=== PATIENT | male | born 1940 | race Caucasian/White ===

== ENCOUNTER 2017-09-03 08:44 | Emergency (ER) | payer MEDICARE, OTHER ==
[~2017-09-03] VITALS: Ht 185.4 cm; Wt 100.0 kg
[2017-09-03 08:45] VITALS: BP 150/82; PULSE 81; RESP 14; TEMP 98; O2SAT 96
--- NOTE | 2017-09-03 09:25 | RADRPT ---
EXAM DATE/TIME: 09/03/2017 09:03 [place] COMPARISON: No previous studies available for comparison. INDICATIONS : Rolled right ankle when stepping off a curb yesterday morning, pain along lateral side MEDICAL HISTORY : None. SURGICAL HISTORY : None. ENCOUNTER: Initial ACUITY: 2 days PAIN SCORE: 10/10 LOCATION: Right ankle FINDINGS: Subtle nondisplaced fracture of the lateral malleolus. Talar dome is intact. Remaining osseous struct ures are intact. Joint spaces are maintained. Soft tissues are unremarkable. CONCLUSION: 1. Subtle nondisplaced lateral malleolar fracture. Stan Mckenzie MD on September 03, 2017 at 9:22 Board Certified Radiologist. This report was verified electronically.
--- NOTE | 2017-09-03 09:49 | PD ---
HPI Chief Complaint: Injury Time Seen by Provider: 08:59 Travel History International Travel<30 days: No Contact w/Intl Traveler<30days: No Traveled to known affect area: No History of Present Illness HPI 77-year-old male presents to emergency department status post stepping off a curb last evening injuring his right lateral ankle. She is going into a restaurant where he stepped off a small curb twisting his right ankle. He is concerned that it may be fractured. He has pain with ambulation, but no significant swelling or ecchymosis. He did not fall completely down. He had no loss of consciousness or syncope. Pain in the ankles about a 7 out of 10. He's been taking Advil with good results. Denies any other injury. He is down visiting from [place] for the [place]. He has no known drug allergies. [facility] Social History Alcohol Use: Yes (4 drinks a day ) Tobacco Use: No Substance Use: No Allergies-Medications (Allergen,Severity, Reaction): Coded Allergies: No Known Allergies (Unverified , 09/03/17) Review of Systems Except as stated in HPI: all other systems reviewed are Neg General / Constitutional: No: Fever Eyes: No: Visual changes HENT: No: Headaches Cardiovascular: No: Chest Pain or Discomfort Respiratory: No: Shortness of Breath Gastrointestinal: No: Abdominal Pain Genitourinary: No: Dysuria Musculoskeletal: Positive: Arthralgias, Limited ROM, Pain Skin: No Rash Neurologic: No: Weakness Psychiatric: No: Depression Endocrine: No: Polydipsia Hematologic/Lymphatic: No: Easy Bruising Physical Exam Narrative GENERAL: Patient appears in mild distress. SKIN: Warm and dry. Normal color. Normal turgor. No signs of abrasion, contusion, or ecchymosis. HEAD: Atraumatic. Normocephalic. EYES: Pupils equal and round. No scleral icterus. No injection or drainage. ENT: No nasal bleeding or discharge. Mucous membranes pink and moist. Pharynx is clear. Airway is patent NECK: Trachea midline. Supple nontender. CARDIOVASCULAR: Regular rate and rhythm. RESPIRATORY: No accessory muscle use. Clear to auscultation. Breath sounds equal bilaterally. GASTROINTESTINAL: Abdomen soft, non-tender, nondistended. Hepatic and splenic margins not palpable. MUSCULOSKELETAL: Extremities without clubbing, cyanosis, or edema. No obvious deformities. Patient has tenderness with palpation to the tip of the right lateral malleolus of the right ankle. He has no decreased range of motion other than from discomfort. Distal neurovascular exam is normal. NEUROLOGICAL: Awake and alert. No obvious cranial nerve deficits. Motor grossly within normal limits. Five out of 5 muscle strength in the arms and legs. Normal speech. PSYCHIATRIC: Appropriate mood and affect; insight and judgment normal. Data Data Last Documented VS Vital Signs Date Time Temp Pulse Resp B/P (MAP) Pulse Ox O2 Delivery O2 Flow Rate FiO2 09/03/17 08:45 98.0 81 14 150/82 (104) 96 Room Air Orders Orders Ankle, Complete ([id number]) (09/03/17 09:01) Post Op Boot (Shoe) (09/03/17 ) Radiology Film Requests (09/03/17 ) [facility] Medical Decision Making Medical Screen Exam Complete: Yes Emergency Medical Condition: Yes Differential Diagnosis Right ankle sprain. Right ankle fracture. Right ankle pain. Narrative Course X-ray of the right ankle is obtained. X-ray shows subtle nondisplaced distal fibular fracture of the right ankle. Patient is placed in a postop boot, and crutches. Patient is to take Tylenol and Advil [id number] as needed for pain. He is to limit walking as much as possible until seen by his orthopedist. He should ice this area as discussed. Patient follow up if symptoms worsen as needed. Copies of his x-ray given and recommended follow-up with his primary care and/ or orthopedist in [place] when he arrives home. Diagnosis Primary Impression: Fracture of distal end of right fibula Qualified Codes: S82.831A - Other fracture of upper and lower end of right fibula, initial encounter for closed fracture Referrals: Orthopedist Primary Care Physician Patient Instructions: Ankle Fracture (ED), Crutch Instructions (ED), General Instructions, Splint Care (ED) Additional Instructions: X-ray shows subtle nondisplaced distal fibular fracture of the right ankle. Patient is placed in a postop boot, and crutches. Patient is to take Tylenol and Advil [id number] as needed for pain. He is to limit walking as much as possible until seen by his orthopedist. He should ice this area as discussed. Patient follow up if symptoms worsen as needed. Copies of his x-ray given and recommended follow-up with his primary care and/ or orthopedist in [place] when he arrives home. Med/Other Pt SpecificInfo: No Meds Exist/No RX given Disposition: 01 DISCHARGE HOME Condition: Stable Noam Calvin Sep 03, 2017 09:49
== END 2017-09-03 10:48 | disposition home or self-care (01) ==
LOC: NEPD 08:44
DX: S82.831A Other fracture of upper and lower end of right fibula, initial encounter for closed fracture (principal); W18.43XA Slipping, tripping and stumbling without falling due to stepping from one level to another, initial encounter; Y92.511 Restaurant or cafe as the place of occurrence of the external cause
CPT/HCPCS: 73610; 99283; E0113; L2114